=== PATIENT | male | born 1945 | race Caucasian/White ===

== ENCOUNTER 2017-12-17 18:56 | Emergency (ER) | payer OTHER ==
[~2017-12-17] VITALS: Ht 167.6 cm; Wt 68.0 kg
[2017-12-17] MEDS ORDERED: MUPIROCIN1 G1 TOP (19:25)
[2017-12-17] MEDS ORDERED: ALLER-TEC10 MG PO (19:26)
[2017-12-17] MEDS ORDERED: MOMETASONE FURO15 G1 TOP (19:26)
[2017-12-17] MEDS ORDERED: LEVOFLOXACIN750 MG PO (19:26)
== END 2017-12-17 22:32 | disposition home or self-care (01) ==
LOC: ER 18:56
DX: L40.8 Other psoriasis (principal)

== ENCOUNTER 2018-02-01 09:44 | Inpatient (IN) | payer OTHER ==
[~2018-02-01] VITALS: Ht 167.6 cm; Wt 56.7 kg
[~2018-02-01 09:44] MED LIST: ALLER-TEC10 MG PO; LEVOFLOXACIN750 MG PO; MOMETASONE FURO15 G1 TOP; MUPIROCIN1 G1 TOP
== END 2018-02-18 14:18 | disposition home or self-care (01) | DRG 872 ==
LOC: ER 09:44 → SEC-K 18:29 → MEDI 18:29 → MEDJ 02-07 22:51
PROC: 8E0ZXY6 Isolation (ICD-10-PCS; 2018-02-01)
PROC: 02HV33Z Insertion of Infusion Device into Superior Vena Cava, Percutaneous Approach (ICD-10-PCS; principal; 2018-02-02)
PROC: 30233N1 Transfusion of Nonautologous Red Blood Cells into Peripheral Vein, Percutaneous Approach (ICD-10-PCS; 2018-02-07)
DX: A41.9 Sepsis, unspecified organism (principal); C84.1 Sezary disease; L98.498 Non-pressure chronic ulcer of skin of other sites with other specified severity; N39.0 Urinary tract infection, site not specified; C84.08 Mycosis fungoides, lymph nodes of multiple sites; B18.2 Chronic viral hepatitis C; B95.62 Methicillin resistant Staphylococcus aureus infection as the cause of diseases classified elsewhere; L66.1 Lichen planopilaris; D50.0 Iron deficiency anemia secondary to blood loss (chronic); B37.2 Candidiasis of skin and nail